=== PATIENT | female | born 1950 | race Two or more races ===

== ENCOUNTER 2024-09-07 12:30 | Outpatient (AMB) | payer MEDICARE, SELFPAY ==
--- NOTE | 2024-09-07 12:41 | MHC.OFFVIS ---
Vital Signs 09/07/24 12:42 Height 4 ft 9 in Weight 123 lb BMI 26.6 BP 126/78 Blood Pressure Location Lt brachial Position Sitting Pulse 67 Pulse Source Pulse Oximeter Pulse Oximetry (%) 97 Oxygen Delivery Method Room Air Intake Visit Reasons: FM/cm Intake Note: Patient presents today as a new patient externally referred by PCP for fibromyalgia. She has had symptoms for 3 or more years, she has GAbapentin for the pain, sometimes it's so bad she cries. She mainly has pain in both arms for months. Water Conservation Specialist Services: Water Conservation Specialist Offered & Declined Water Conservation Specialist Name: Patient's daughter, Toña. Allergies penicillin G Allergy (Mild, Verified 09/07/24 12:47) asthma afia selzer Allergy (Mild, Uncoded 09/07/24 12:47) asthma Medication List - Last Reconciled 09/07/24 by Sultana Lehman MD acetaminophen ER 650 mg PO TID albuterol sulfate 90 mcg/actuation inhalation atorvastatin 10 mg PO DAILY cetirizine 10 mg PO DAILY duloxetine 30 mg PO DAILY famotidine 20 mg PO BID fluticasone propionate 220 mcg/actuation inhalation fluticasone propionate 50 mcg/actuation sprays intranasal gabapentin 300 mg PO TID minoxidil mg PO montelukast 10 mg PO DAILY pantoprazole 40 mg PO BID triamcinolone acetonide 0.025% appl topical DAILY vit C,B-At-dhhni-lutein-zeaxan 250-90-40-1 mg (PreserVision AREDS-2) 1 cap PO BID vitamins A,C,K-ocod-byurlb 4,296 mcg-226 mg-90 mg 1 cap PO BID HPI Comments Details: Patient is a 74-year-old female with hyperlipidemia who presents for evaluation of fibromyalgia Patient comes with her daughter who assists with translation. Patient states that several years ago she presented to a doctor with polyarthralgias and was diagnosed with fibromyalgia. She was subsequently started on gabapentin and duloxetine with minimal effect. She continues to have chronic polyarticular and polymuscular pain. Today specifically her right shoulder extending down her right arm Denies rashes, photosensitivity, alopecia, oral/nasal ulcers, sicca symptoms, lymphadenopathy, chest pain/shortness of breath, inflammatory type joint pain, foamy urine, lower extremity edema, muscle weakness, Raynaud's Also denies history of seizure, CVA, psychosis, history of kidney problems, history of cytopenias, history of VTE including PE or DVTs OB History: No history of recurrent losses [facility] Medical History (Updated 09/06/24 @ 16:30 by Mary Jo Mari [facility]) Hyperlipidemia Osteoporosis Asthma Positive FLO (antinuclear antibody) Gastric reflux Colonic polyp Chronic abdominal pain Chronic shoulder pain Cyst of right kidney Adrenal adenoma Acute anxiety Obstructive sleep apnea Lumbar facet arthropathy Type 2 diabetes mellitus Fibromyalgia Review of Systems Const Details: Review of Systems Constitutional: Denies fever, chills, weight loss ENT: Denies vision changes, eye pain or eye redness, dental caries, dry mouth GI: Denies nausea, vomiting, diarrhea, abdominal pain, change in BM Pulm: Denies SOB, MATHEW, hemoptysis, wheezing Cards: Denies chest pain, palpitations Skin: Denies Raynaud's, rash, nail changes, photosensitivity, PANTS CLOSER: Denies headaches, weakness, paresthesias, recurrent falls MSK: as per HPI All other systems reviewed and are unremarkable except noted above Physical Exam Vital Signs: Last Vital Signs Pulse 67 09/07/24 12:42 BP 126/78 09/07/24 12:42 Pulse Ox 97 09/07/24 12:42 Oxygen Delivery Method Room Air 09/07/24 12:42 BMI result Body Mass Index 26.6 Physical Examination CONSTITUITIONAL Patient alert and cooperative. Well appearing and in no apparent painful distress HEENT Conjunctiva and sclera clear. ?Pupils equal round and reactive to light. ?No lymphadenopathy. ?Normal dentition. No oral or nasal ulcers noted. No evidence of discoid rash to the rogerio of ears CHEST/RESPIRATORY SYSTEM Normal respiratory effort and able to speak in complete sentences. ?Clear to auscultation bilaterally. ?No crackles, rales, rhonchi, wheezes heard. CARDIAC SYSTEM Regular rate and rhythm. ?S1 and S2 heard no murmurs. ?Radial pulses intact bilaterally MSK Hands: ?Good swimming coach strength bilaterally - 5/5. ?Heberden's nodes noted on bilateral hands involving the DIPs. No synovitis noted to the MCPs, PIPs or DIPs. ?No tenderness to palpation of these joints. Wrists: ?Full range of motion at the wrists without pain. ?No tenderness to palpation or synovitis noted to the wrists. Elbows: Full range of motion without pain. No tenderness, weakness, swelling, increased warmth or erythema. Shoulders: Full range of motion without pain. No tenderness, weakness, swelling, increased warmth or erythema. Hips: Full range of motion without pain. Hip bursa: No tenderness to palpation Knees: ?Full range of motion. ?No tenderness, swelling, increased warmth or erythema.?No effusion or crepitations Ankles: Full range of motion. ?No tenderness, swelling, increased warmth or erythema.? Feet: ?Negative squeeze test. ?No tenderness to palpation or swelling of the MTPs. Tender points:??Had some mild tender points involving the trapezius, lower back, bilateral elbow and bilateral knees. SKIN Skin intact without rashes. Results Reviewed Results Reviewed: No results seen in the system Assessment & Plan Assessment & Plan (1) Fibromyalgia: Code(s): M79.7 - Fibromyalgia Plan: #Fibromyalgia Patient carries a diagnosis of fibromyalgia. At this time discussed with patient the nature of the disease. Pain is likely compounded by osteoarthritis involving multiple joints including hands, shoulders and likely lower back. Told her to continue taking gabapentin and duloxetine. We will get CMP today and consider adding Celebrex to her regimen. Plan I spent 30 minutes reviewing the record and labs, seeing the patient, discussing the treatment plan and documenting in the medical record Orders: Orders Comprehensive Met. Panel Today M79.7 - Fibromyalgia Coding Level of Care Code New Pt Level 3 (61500) Diagnoses Fibromyalgia M79.7
[2024-09-07 12:42] VITALS: BP 126/78; PULSE 67; O2SAT 97; BMI 26.6
== END 2024-09-07 13:24 | disposition home or self-care (01) ==
LOC: HO.RHE 12:31
PROVIDERS: PCP Internal Medicine; Visit Provider Student in an Organized Health Care Education/Training Program
DX: M79.7 Fibromyalgia (principal)
CPT/HCPCS: 99203

== ENCOUNTER 2024-09-07 12:30 | Outpatient (REF) | payer MEDICARE, SELFPAY ==
[2024-09-07 14:28] LABS: Alanine Aminotransferase 17 U/L (0-31); Albumin Level 4.3 g/dL (3.5-5.0); Alkaline Phosphatase 110 U/L (39-117); Anion Gap 14 (12-20); Aspartate Amino Transferase 33 U/L (5-31); Bilirubin Total 0.4 mg/dL (0.0-1.0); Blood Urea Nitrogen 9 mg/dL (9-16); Calcium 9.7 mg/dL (8.4-10.2); Carbon Dioxide 25 mmol/L (22-29); Chloride 107 mmol/L (96-108); Estimated Glomerular Filt Rate > 60; Glucose Random 105 mg/dL (60-115); Potassium 4.7 mmol/L (3.3-5.1); Sodium 141 mmol/L (135-145); Total Protein 7.8 g/dL (6.5-8.0)
== END 2024-09-07 12:31 | disposition home or self-care (01) ==
LOC: HO.LAB 12:30
PROVIDERS: PCP Internal Medicine; Visit Provider Student in an Organized Health Care Education/Training Program
DX: M79.7 Fibromyalgia (principal)
CPT/HCPCS: 36415; 80053; 99202

== ENCOUNTER 2025-03-08 10:25 | Outpatient (REF) | payer OTHER, SELFPAY ==
--- OUTSIDE RECORDS SUMMARY | 2025-03-08 11:42 | XMS_ITS | Data Portability ---
Author Organization [employer] Address [address] [place] [id number] Care Team Providers Care Lay Midwife Name Role Phone HIM CCA Referring Provider [phone] Assessment Encounter Date Assessment Date Assessment LastModified by Organization Details LastModified Time 04/07/2022 04/07/2022 72yoF w/ Pmhx of mild asthma and DM2 (non insulin diabetic) who is seen today for five days of a dry cough fever, and three days of b/l lower back pain. Ms. Arango reports that for the past five days she has had a dry cough, fever up to 101 (yesterday), and has had sharp, stabbing pain to her bilateral flanks. She tried to present to the ED yesterday where she received tylenol and had an EKG done, but left without being seen by a provider 2/2 long wait times. Denies n/v or dysuria. VSS on arrival, stock speculator reports patient is well appearing. Lungs clear to ausculatation bilaterally, mild CVA tenderness bilaterally. Abdomen benign. COVID/Flu/Strep testing done and negative. POC urine dipstick performed and notable for 4+ protein, 4+ blood, but negative for leukocyte esterase/nitrites . She denies needing analgesia. Most concerning etiology of her fever would be infected stone, but UA not grossly infected, pain seems to be minimal on exam. Possibly mild nephrolithiasis. Dry cough and fever sound most consistent with a viral etiology, clear lung sounds reassuring against lobar pneumonia. Will send UA for culture. Patient comfortable with plan to manage symptoms conservatively at home with tylenol/ibuprofen PRN. Primary team should see patient in next 2 weeks to f/u hematuria. [email or web address] Not available 04/07/2022 19:53:54 12/24/2023 12/24/2023 I provided real -time medical direction via phone for this encounter, and was available for additional phone based assistance as needed. I have reviewed and agree with the Assessment and Plan as documented by the Swahili Teacher. Patient given the opportunity to ask questions. As per above, patient with a unwitnessed fall but was able to immediately get up. She did develop pain in the left foot and had swelling and bruising. Please see uploaded pictures. She can bear weight and walk on it. She calls to get an assessment of whether not she has a fracture. She is taking some Tylenol for pain. As she can walk on it there is no immediate need for an x-ray or evaluation. Recommended to keep it elevated and get in touch with her PCP office or go to Urgent Care for diagnostic imaging of a plain film in the morning. She is agreement with this plan and wants to avoid the ED at all possible cost. We discussed the diagnostic uncertainty of home visits and the risk associated with this. In this case, the patient and I felt this to be an acceptable and reasonable amount of risk given the benefit of avoiding an ED visit. We discussed the need to seek care urgently/emergent ly in the setting of any new or worsening serious symptoms [email or web address] Not available 12/24/2023 18:47:31 Plan of Treatment Reminders Order Date Submit Date Provider Last Modified By Organization Details Last Modified Time Details Appointments None recorde d. Lab culture , urine 022 04/07/20 22 [facility] (Centralized Electronic Ordering - All Locations), Patient Can Go To The Location Of Their Choice, [address] 09:36:37 Referral None recorde d. Procedures None recorde d. Surgeries None recorde d. Imaging None recorde d. Medication Orders None recorde d. Patient TargetsNo targets recorded. Patient InstructionsNo instructions recorded. Reason for Referral None Reported. Medical Equipment None Reported. Allergies Allergen ID Allergen Name Allergen Category Reaction Reaction Severity Criticality Documentation Date Start Date Code Code System Note Provider Name and Address Organization Details Recorded Time 6991 Product containin g penicilli n (product) medicatio n Not available Not available Not available 08/29/2024 19999 8001 SNOMED Not Available [facility] 03:34:07 6992 aspirin medicatio n Not available Not available Not available 08/29/2024 1191 RxNorm Not Available [facility] - production 4 03:34:07 Medications Name Sig Start Date Stop Date Status Note LastModified by Organization Details LastModified Time albuterol sulfate 2.5 mg/3 mL (0.083 %) solution for nebulization PLEASE SEE ATTACHED FOR DETAILED DIRECTIONS active Not Available Not Available N ot Available cetirizine 10 mg tablet TAKE 1 TABLET BY MOUTH DAILY NEEDED FOR ALLERGIES OR RHINITIS. active Not Available Not Available No t Available sucralfate 1 gram tablet TAKE [address] 6 OZ OF WATER, LET TABLET MELT, STIR, AND TAKE BY MOUTH TWO TIMES A DAY active Not Available Not Available Not Available triamcinolon e acetonide 0.5 % topical ointment APPLY 1 APPLICATION TO AFFECTED AREA EXTERNALLY TWICE A DAY FOR 30 DAYS active Not Available Not Available Not Available baclofen 10 mg tablet TAKE 1 TABLET BY MOUTH 3 TIMES A DAY NEEDED FOR MUSCLE SPASM *MAY CAUSE SEDATION* active Not Available Not Available No t Available pantoprazole 40 mg tablet,delay ed release PLEASE SEE ATTACHED FOR DETAILED DIRECTIONS active Not Available Not Available N ot Available gabapentin 300 mg capsule TAKE 1 CAPSULE BY MOUTH TWICE A DAY active Not Available Not Available No t Available montelukast 10 mg tablet TAKE 1 TABLET BY MOUTH AT BEDTIME FOR 180 DAYS. active Not Available Not Available No t Available hydroxyzine HCl 10 mg tablet TAKE 1 TABLET BY MOUTH BEFORE FLIGHT TAKE OFF, MAY REPEAT ONCE NEEDED IN FLIGHT active Not Available Not Available No t Available betamethason e dipropionate 0.05 % lotion APPLY 5 TO 10 DROPS ONCE OR TWICE DAILY TO SCALP NEEDED active Not Available Not Available No t Available Vitamin D3 25 mcg (1,000 unit) tablet TAKE 1 TABLET BY MOUTH EVERY DAY active Not Available Not Available No t Available rosuvastatin 20 mg tablet TAKE 1 TABLET BY MOUTH EVERY DAY active Not Available Not Available No t Available duloxetine 20 mg capsule,niki yed release TAKE 1 CAPSULE BY MOUTH EVERY DAY active Not Available Not Available No t Available duloxetine 30 mg capsule,niki yed release TAKE 1 CAPSULE BY MOUTH DAILY FOR 360 DAYS. active Not Available Not Available No t Available lactulose 10 gram/15 mL oral solution TAKE 15-30 ML BY MOUTH DAILY (WITH BREAKFAST). active Not Available Not Available Not Available Vitals Date Recorded Respiratory rate Body weight Heart rate Body temperature Oxygen saturation Oxygen saturation in Arterial blood by Pulse oximetry Body height Body weight Body temperature Body height Respiratory rate Heart rate Oxygen saturation Oxygen saturation in Arterial blood by Pulse oximetry Systolic blood pressure Diastolic blood pressure Systolic blood pressure Diastolic blood pressure Provider Name and Address Organization Details Last Updated DateTime 2 20 /min 08340.0 4 g 73 /min 99.1 [degF] 98 % 98 % 154.94 cm 36586.0 4 g 99.1 [degF] 154.94 cm 20 /min 73 /min 98 % 98 % 114 mm[Hg] 68 mm[Hg] 114 mm[Hg] 68 mm[Hg] Not Available [facility] 2 18:43:39 Date Recorded Body temperature Heart rate Body height Body weight Respiratory rate Oxygen saturation Oxygen saturation in Arterial blood by Pulse oximetry Provider Name and Address Organization Details Last Updated DateTime 4 98.4 [degF] 78 /min 152.4 cm 61530 g 14 /min 98 % 98 % Not Available [facility] 4 18:45:12 Social History None recorded. Functional Status None recorded. Mental Status None recorded. Family History Nothing Reported. Medical History No medical history recorded. Gynecological HistoryNo gynecological history recorded. Obstetrics History GPAL:G 0 P 0 0 0 0 Past Encounters Encounter ID Performer Location Encounter Start Date Encounter Closed Date Diagnosis/Indication Diagnosis SNOMED-CT Code Diagnosis ICD10 Code Diagnosis Note 1999 Sandy Cowart MD [facility] [address] [place] [id number] 04/07/2022 18:15:26 06/30/2022 11:42:36 Low back pain 538024876 M54.50 [id number] Myah David MD [facility] [address] [place] [phone] 12/24/2023 18:45:02 03/02/2025 00:25:46 Fall W19.XXXA Pain in left foot 542341 3632 28609 M79.672 Health Concerns Section Related Observation LastModified by Organization Detai ls LastModified Time None Recorded Concern Status LastModified by Organization Details LastModified Time None Recorded Advance Directives Directive None Recorded Payers Insurance Date Sequence Insurance Name Policy Number Policy Mullins Covered Member ID Mullins Member ID Guarantor Name 09/27/2024 1 [facility] - DOS PRIOR TO 2023 - DUAL ELIGIBLE (MEDICARE REPLACEMENT/ADV ANTAGE - HMO) Fartun Davon [id number] Fartun Mays 03/02/2025 1 [facility] - DOS ON OR AFTER 2023 - DUAL ELIGIBLE - [facility] OPTIONS AND ONE CARE (MEDICARE REPLACEMENT/ADV ANTAGE - HMO) Fartun Davon [id number] Fartun Mays Notes Date Note Type Note Provider Name and Address Organization Details Recorded Time 04/07/2022 text/html [facility] Nursing Assessment: Reason For Request: Body ache/fevers/neck /REYES Patient Reports: Cough, fever greater than 2 days ; History of asthma, increased use of inhaler; Cough; Shortness of breath with exertion; Pain with inspiration Denies: Increased work of breathing/labored ? with or without fever Unable to speak in full sentences without distress Discoloration of skin -cyanosis Needs to sleep sitting up, can? t catch breath Shortness of breath in setting of confusion Lower extremity swelling COPD COVID Exposure Sputum increase Chief Complaints: Fever/Chills, Cough PMH: COPD/Asthma, Diabetes, Other Allergies: Penicillin, Aspirin Comments: Member c/o of body aches / Reyes/ Neck / Fever 100.4 yesterday and was given tylenol at the ER , left due to wait. EKG was done with no Cardiac concerns. Denies N/V/D, slight cough . Member c/o slight and sob and decreased appetite . Member was tested for COVID Rapid test negative . Family is aware to call 911 if symptoms become severe .................. .................. .................. .................. .................. .................. .................. ............... Swahili Teacher Note: Pt is a 72 year old female with cough and flank pain. Pt alt, oriented and ambulatory. Pt in no acute distress, airway patent, breathing normally, skin WPD. Pt states on Wednesday, she began to develop a headache. Wednesday she woke up with Body aches. Wednesday she had a temp of 100.4. Yesterday she had a temp of 101.4, went to the ED. In triage she tested negative for covid, had EKG performed, was given Tylenol for fever and left without being fully worked up due to wait times. Today the pt complains of a mild unproductive cough and flank pain. Pt denies contact with any sick people, she is vaccinated and boosted. Rapid covid, strep and flu obtained, all negative results. Pt has been taking Tylenol for symptoms, with mild effect. Pt has had flank pain since Wednesday. Bilateral CVA tenderness noted. Pt has history of kidney stones. Pt complains when urinating she feels pressure in her back paired with pain, malodorous/concent rated urine. Urine sample obtained and dipped, changes in KET, BLO, PRO, SG. Urine brought to [facility] for culture. No further complaints. Vital signs assessed and all within normal limits. Red flags discussed. Consulted with Dr. Cowart. Pt to follow up with PCP/care team regarding her signs, symptoms and todays visit. Pt to wait for Culture results, take Tylenol/ibuprofen for pain/fever. Stay well hydrated. Contact [facility] for re-visit if symptoms persis.t Contact 911 for any discussed red flags or other emergencies. .................. .................. .................. .................. .................. .................. .................. ............... Disposition: Melody Cowart MD [address] [facility],[address], [place], [phone], [employer] 04/07/2022 19:54:21 12/24/2023 text/html [facility] Nurse Triage Notes (Johnny Patricio): Reason For Request: Pt's daughter reporting a fall from slipping in the bathtub>pain in entire left leg primarily bottom and top of left foot Chief Complaints: Falls, Pain PMH: COPD/Asthma, Diabetes Allergies: Penicillin, Aspirin Comments: [employer] Music Therapist verified the member's name//address and phone number - Education provided on the response time and the member was advised to monitor reported s/s and seek emergency treatment if needed CG reports the member had a fall earlier - slipped when getting in the bath tub - Unwitnessed - Pain located in foot/ankle - Swelling - CG is requesting a wellness check Myah David MD [address] [facility],[address], [place], [phone], [employer] 12/24/2023 18:47:40 OBGyn Episode No OBEpisode recorded.
--- OUTSIDE RECORDS SUMMARY | 2025-03-08 11:42 | XMS_ITS | Clinical Summary ---
Author Organization [facility] [address] [place] [address] [place] [phone] Phone Care Team Providers Care Microarray Analyst Name Role Phone Jay Corona MD Primary Care Provider [phone] Allergies Active Allergy Reactions Criticality Noted Date Comments Asa-Calcium Xuxb-Giv-Samnpgqm Wheezing 11/26/2011 Aspirin Shortness of breath High 07/06/2019 Azithromycin Rash 08/26/2016 Nsaids (Non-Steroidal Anti-Inflammatory Drug) Wheezing 01/06/2018 Penicillins Wheezing 11/26/2011 Asthma reaction Medications fluticasone HFA (FLOVENT HFA) 220 mcg/actuation inhaler INHALE 2 PUFFS INTO THE LUNGS 2 TIMES DAILY FOR 30 DAYS. 12 g 5 09/12/20 24 Active minoxidiL (LONITEN) 2.5 mg tablet Take 1 tablet (2.5 mg total) by mouth 1 (one) time each day. 07/22/20 24 Active albuterol HFA (PROAIR HFA ; PROVENTIL HFA ; VENTOLIN HFA) 90 mcg/actuation inhaler Inhale 2 puffs by mouth every 4 (four) hours if needed. 08/28/20 24 Active celecoxib (CeleBREX) 200 mg capsule Take 1 capsule (200 mg total) by mouth 2 (two) times a day. 09/08/20 24 Active clobetasoL (TEMOVATE) 0.05 % cream Apply twice a day to the upper labia for 10 days 08/15/20 24 Active triamcinolone (KENALOG) 0.1 % cream APPLY TO AFFECTED AREA TWICE A DAY NEEDED 09/13/20 24 Active zoledronic acid (RECLAST) 5 mg/100 mL piggyback Infuse 100 mL (5 mg total) into a venous catheter 1 (one) time. 04/14/20 23 Active miscellaneous medical supply misc CPAP Historical Active cyanocobalamin (VIT B-12) 1,000 mcg tablet extended release ER tablet Take 1 tablet (1,000 mcg total) by mouth 1 (one) time each day. Active cholecalcifero l (VITAMIN D-3) 50 mcg (2,000 unit) tablet Take 1 capsule (2,000 Units total) by mouth 1 (one) time each day. Active famotidine (PEPCID) 20 mg tablet TAKE 1 TABLET BY MOUTH 2 TIMES DAILY NEEDED FOR HEARTBURN FOR UP TO 30 DAYS. 180 tablet 3 10/18/20 24 Active acetaminophen (TYLENOL 8 HOUR) 650 mg 8 hr tablet TAKE 1 TABLET BY MOUTH EVERY 8 HOURS NEEDED FOR PAIN 60 tablet 11/06/19 25 Active acetaminophen (TYLENOL 8 HOUR) 650 mg 8 hr tablet Take 1 tablet (650 mg total) by mouth every 8 (eight) hours if needed for mild pain. Do not crush, chew, or split. Active atorvastatin (LIPITOR) 10 mg tablet TAKE 1 TABLET BY MOUTH EVERY DAY 90 tablet 11/16/19 25 Active pantoprazole (PROTONIX) 40 mg EC tablet TAKE 1 TABLET BY MOUTH 2 TIMES DAILY (BEFORE MEALS). TAKE ON EMPTY STOMACH, WAIT 30 MINS AND THEN EAT TO ACTIVATE THE MEDICATION- BEFORE BREAKFAST AND SUPPER. 180 tablet 1 11/30/19 25 Active rosuvastatin (CRESTOR) 5 mg tablet Take 1 tablet (5 mg total) by mouth 1 (one) time each day. 90 each 1 12/04/19 25 025 Active pantoprazole (PROTONIX) 40 mg EC tablet Take 1 tablet (40 mg total) by mouth 2 (two) times a day. Take on empty stomach, wait 30 mins and then eat to activate the medication- before breakfast and dinner 60 each 11 12/05/19 25 Active famotidine (PEPCID) 40 mg tablet Take 1 tablet (40 mg total) by mouth 2 (two) times a day if needed for heartburn. 60 each 11 12/05/19 25 Active ondansetron (ZOFRAN) 4 mg tablet Take 1 tablet (4 mg total) by mouth 3 (three) times a day. 60 tablet 6 12/05/19 25 Active cetirizine (ZyrTEC) 10 mg tablet TAKE 1 TABLET BY MOUTH 1 TIME EACH DAY. 90 tablet 1 12/12/19 25 Active fluticasone propionate (FLONASE) 50 mcg/actuation nasal spray SPRAY 2 SPRAYS INTO EACH NOSTRIL EVERY DAY 48 mL 1 12/21/19 25 Active montelukast (SINGULAIR) 10 mg tablet TAKE 1 TABLET BY MOUTH EVERYDAY AT BEDTIME 90 tablet 1 01/10/20 25 Active DULoxetine (CYMBALTA) [address] capsule TAKE 1 CAPSULE BY MOUTH 1 TIME EACH DAY. 90 capsule 01/27/20 25 Active LORazepam (ATIVAN) 0.5 mg tablet Take one tab one hour prior to takeoff, may repeat x one if needed while in flight 4 tablet 01/30/20 25 Active gabapentin (NEURONTIN) 300 mg capsule TAKE 1 CAPSULE BY MOUTH THREE TIMES A DAY STRENGTH: 300 MG 270 capsule 1 03/05/20 25 Active gabapentin (NEURONTIN) 300 mg capsule Take 1 capsule (300 mg total) by mouth 3 (three) times a day. 08/30/20 24 025 Discontinued Active Problems Problem Noted Date Diagnosed Date Fibromyalgia 05/13/2021 Type II diabetes mellitus wi th ophthalmic manifestations ([facility] V24, [facility] V28) 05/13/2021 Lumbar facet arthropathy 04/26/2020 Obstructive sleep apnea 06/06/2018 Overview (10/02/2024): UNTREATED ( for 5 years as of 10/08/22) [facility] Home Polysomnogram: Date 06/01/2018; AHI 7, Unclassified apneas 0; Obstructive apneas 27; Central apneas 6; Mixed apneas 1; hypopneas 23; average oxygen saturation 96% (lowest 83% without saturations <88% for 5% or more of study) [facility] Polysomnogram treatment study. Date 06/16/2018. SE 40 % SM 71 %; spent 11 % of the study in REM. On CPAP @ 6; RDI 1.4 (AHI 0), Central apneas 0; Obstructive apneas 0; Mixed apneas 0; hypopneas 0; RERAs 4; and, average oxygen saturation was 96%. For the entire study, PLMs ~79. 12/17/2020 to 01/15/2021. CPAP@ 4-8/Average 7.6. 7% compliant with using the machine for >4 hours/day. Average use is 9 hours a night with AHI 1.9. - Obstructive Sleep Apnea - mild; mostly obstructive apneas and hypopneas; without sleep related hypoventilation by 2018 home polysomnogram. Anxiety 05/23/2018 Adrenal adenoma 12/18/2014 Overview (10/02/2024): Incdiental finding on CT 2014 - small left adrenal mass measuring 1.4 x 1.4 cm, not mentioned in CT at [facility] in 2009 Cyst of right kidney 12/18/2014 Overview (10/02/2024): Abd US 2005 [facility] - right kidney cyst 1.[address] 2009 [facility] - right upper kidney cyst 2.1 cm Abd US 2012 - upper pole the right kidney measuring 2.5 x 2.[address] 2014 - upper pole of the right kidney measuring 3.2 x 2.9 x 3.1 cm. Macular degeneration 05/28/2014 Overview (10/02/2024): Dr. Zapata and [facility] Chronic shoulder pain 01/16/2014 Chronic abdominal pain 04/13/2013 Overview (10/02/2024): Mostly epigastric and right upper quadrant. Gallbladder ultrasound 2008, abdominal CT scan 2009, abdominal ultrasound 2005, all at [facility]. Gastric reflux 03/31/2013 Positive FLO (antinuclear antibody) 12/14/2012 Asthma 11/15/2012 Osteoporosis 03/17/2012 Overview (10/02/2024): Last BMD 08/2012 - T -2.5 in lumbar spine B12 deficiency 11/26/2011 Depression 11/26/2011 Hyperlipidemia 11/26/2011 Assessment & Plan (12/04/2024 11:36 AM EST): Orders: Hemoglobin A1c; Future Lipid panel with reflex to direct LDL; Future Comprehensive metabolic panel; Future Microalbumin creatinine urine ratio; Future Insomnia 11/26/2011 Migraine 11/26/2011 Encounters Date Type Department Care Team Description 03/01/2025 12:00 PM EDT Telemedicine [facility] [place] [facility] [place] [address] [place] [address] Violette Bills MD Memory loss 12/29/2024 2:45 PM EST Office Visit Pulmonolgy - [place] [address] [place] [address] Meri Meek MD Mild persistent asthma, unspecified whether complicated (Primary Dx); MAYRA (obstructive sleep apnea) from Last 3 Months Immunizations Name Administration Dates Next Due Influenza Quadravalent, MDCK , 0.5ml, with preservative (Flucelvax) 6mo and older 10/13/2017 Influenza trivalent, 0.5mL ( Fluzone High-dose) 65yo and older 07/14/2024,10/08/2022,12/19/2021,11/15,07/26/2019,07/13/2018 Influenza trivalent, with pr eservative (Fluzone; Afluria) 6mo and older 08/26/2016,08/15/2015,08/28/2014,07/18 Pneumococcal conjugate 13 va lent (Prevnar 13, PCV13) 2mo and older 08/26/2016 Pneumococcal polysaccharide 23 valent (Pneumovax 23) 2yo and older 01/16/2014 Tdap Tetanus diptheria acell ular pertussis (Boostrix; Adacel) 7yo and older 01/16/2013 Zoster Live 01/30/2013 Surgical History Surgery Date Site/Laterality Comments HAND SURGERY 2009 Left PROCEDURE: HISTORICAL HAND SURGERY; COMMENT: tendon repair right hand UPPER GASTROINTESTINAL ENDOSCOPY 2012 PROCEDURE: NM UPPER GI ENDOSCOPY PERFORMED; COMMENT: Visually normal on PPI rx; duodenal bx: normal. COLONOSCOPY 01/10/2010 PROCEDURE: HISTORICAL COLONOSCOPY; COMMENT: [facility]; [facility]; no polyps. COLONOSCOPY 12/28/2008 PROCEDURE: HISTORICAL COLONOSCOPY; COMMENT: [facility]; [facility]; 1.2 cm sessile polyp right colon; snared but lost. COLONOSCOPY 05/09/2015 PROCEDURE: HISTORICAL COLONOSCOPY; COMMENT: [email or web address]; no polyps. SHOULDER SURGERY 2011 PROCEDURE: HISTORICAL SHOULDER SURGERY COLONOSCOPY 07/14/2019 PROCEDURE: HISTORICAL COLONOSCOPY; COMMENT: no polyps. Consider colonoscopy again in 7 years. ESOPHAGOGASTRODUODENOSCOPY 07/14/2021 PROCEDURE: NM EGD TRANSORAL BIOPSY SINGLE/MULTIPLE; COMMENT: bilious fluid in stomach. NOS. biopsy pending HYSTERECTOMY 1996 PROCEDURE: HISTORICAL HYSTERECTOMY; COMMENT: due to fibroids Medical History Medical History Date Comments Positive FLO (antinuclear antibody) 12/14/2012 DX:Positive FLO (antinuclear antibody) Personal history of colonic polyps 04/04/2013 DX:Personal history of colonic polyps Chronic abdominal pain 04/13/2013 DX:Chroni c abdominal pain; COMMENT: Mostly epigastric and right upper quadrant. Gallbladder ultrasound 2008, abdominal CT scan 2009, abdominal ultrasound 2005, all at [facility]. Prediabetes DX:Prediabetes Osteopenia DX:Osteopenia Hyperlipidemia DX:Hyperlipidemi a MAYRA (obstructive sleep apnea) DX :AMYRA (obstructive sleep apnea) Renal cyst DX:Renal cyst Pulmonary nodule DX:Pulmonary no dule Epigastric pain DX:Epigastric pa in Postprandial epigastric pain DX: Postprandial epigastric pain Esophageal reflux DX:Esophageal reflux Anxiety state DX:Anxiety state Asthma DX:Asthma Depressive disorder DX:Depressiv e disorder Diabetes mellitus type 2, co ntrolled, with complications (CMS/HCC V24, CMS/HCC V28) DX:Diabetes mellitus type 2, controlled, with complications (HCC) Chronic gastritis DX:Chronic gas tritis History of COVID-19 12/19/2021 DX:History o f COVID-19; COMMENT: DX: 11/2021 Epigastric pain DX:Epigastric pa in Epigastric pain DX:Epigastric pa in Nausea DX:Nausea Rectal bleeding DX:Rectal bleedi ng Family History Medical History Relation Name Comments Other: sudden Brother 1 ?[place] No Known Problems Brother 2 No Known Problems Brother 3 Other: cancer ?type Father ?liver Asthma Mother No Known Problems Sister 1 Alcohol/Drug Sister 2 lives in [place] Breast cancer Neg Hx Colon cancer Neg Hx Prostate cancer Neg Hx Relation Name Status Comments Brother 1 Brother 2 Alive Brother 3 Alive Father Mother Sister 1 Alive Sister 2 Alive Social History Tobacco Use Types Packs/Day Years Used Date Smoking Tobacco: Never Smokeless Tobacco: Never Tobacco Cessation:Counseling Given: Not Answered Alcohol Use Standard Drinks/Week Comments No 0 (1 standard drink = 0.6 oz pur e alcohol) Comments Unknown Sex and Gender Information Value Date Recorded Sex Assigned at Female 09/18/2024 2:23 PM EST Legal Sex Female 6:18 PM EST Gender Identity Female 09/18/2024 2:23 PM EST Sexual Orientation Straight 09/18/2024 2: 23 PM EST Obstetrics History Last Filed Vital Signs Vital Sign Reading Time Taken Comments Blood Pressure 124/70 12/29/2024 3:02 PM EST Pulse 68 12/29/2024 3:02 PM EST Temperature 35.8 ??C (96.4 ??F) 12/29/2024 3:02 PM ES T Respiratory Rate 16 12/29/2024 3:02 PM EST Oxygen Saturation 97% 12/29/2024 3:02 PM EST Inhaled Oxygen Concentration - - Weight 54.8 kg (120 lb 12.8 oz) 12/29/2024 3:02 PM EST Height 149.9 cm (4' 11 ) 12/29/2024 3:02 PM EST Body Mass Index 24.4 12/29/2024 3:02 PM EST Plan of Treatment Upcoming Encounters Date Type Department Care Team (Late st Contact Info) Description 03/20/2025 2:00 PM EDT Evaluation [facility] Speech Therapy [address] [phone] Gracie Betancourt, TRUCK RENTAL CLERK 06/15/2025 11:30 AM EDT Office Visit Adult Medicine [address] [phone] Jay Corona MD [address] [place] [phone] 06/21/2025 1:40 PM EDT Appointment Radiology Department - [address] [phone] 07/17/2025 10:45 AM EDT Office Visit Pulmonolgy [facility] [address] [facility] [address] [place] [phone] Meri Meek MD [address] [phone] Health Maintenance Due Date Last Done Comments Diabetes: Annual Foot Exam 1961 Diabetes: Annual Retina Eye Exam 1961 Hepatitis A Vaccines (1 of 2 - Risk 2-dose series) 1970 Hepatitis B Vaccines (1 of 3 - Risk 3-dose series) 2011 RSV Immunization Adult Patients (1 - Risk 60-74 years 1-dose series) 2011 Zoster Vaccines (2 of 3) 03/27/2013 01/30/2013 Pneumococcal Vaccine: 50+ Years (3 of 3 - PCV20 or PCV21) 08/26/2021 08/26/2016, 01/16/2014 Depression Screening 10/10/2022 Falls Risk Assessment 10/10/2022 Social Influencers of Health Screening 10/10/2022 DTaP,Tdap,and Td Vaccines (2 - Td or Tdap) 01/16/2023 01/16/2013 COVID-19 Vaccine ( season) 2024 10/02/2021, 03/05/2021, 02/05/2021 Colorectal Cancer Screening: Stool Based Tests (FOBT/FIT) 05/12/2025 05/12/2024 Diabetes: Blood Sugar Control Test (HGBA1C) 06/03/2025 12/04/2024, 05/16/2024, 05/16/2024 Diabetes: Annual Urine Albumin-Creatinine Ratio (uACR) 12/04/2025 12/04/2024, 05/16/2024 Diabetes: Annual GFR (Glomerular Filtration Rate) 12/04/2025 12/04/2024, 05/16/2024, 05/12/2024, Additional history exists Medicare Annual Wellness Visit 12/04/2025 12/04/2024 Breast Cancer Screening 06/15/2026 06/15/20 24, 06/15/2024, 06/14/2023, Additional history exists Cholesterol Screening (Lipid Panel) 12/04/2029 12/04/2024, 05/16/2024, 05/16/2024 Osteoporosis Screening (Bone Density Screening) 09/19/2034 09/19/2024, 01/19/2022, 12/04/2019, Additional history exists Hepatitis C Screening Completed 11/23/2023 Influenza Vaccine Completed 07/14/2024, , 12/19/2021, Additional history exists HIB Vaccines Aged Out No longer eligi ble based on patient's age to complete this topic HPV Vaccines Aged Out No longer eligi ble based on patient's age to complete this topic IPV Vaccines Aged Out No longer eligi ble based on patient's age to complete this topic MMR Vaccines Aged Out No longer eligi ble based on patient's age to complete this topic Meningococcal ACWY Vaccine Aged Out N o longer eligible based on patient's age to complete this topic Meningococcal B Vaccine Aged Out No l onger eligible based on patient's age to complete this topic RSV Immunization Patients Under 20 months Aged Out No longer eligible based on patient's age to complete this topic Varicella Vaccines Aged Out No longer eligible based on patient's age to complete this topic Procedures Procedure Name Priority Date/Time Associated Diagnosis Comments MICROALBUMIN CREATININE URINE RATIO Routine 12/04/2024 12:08 PM EST Pure hypercholesterolemia COMPREHENSIVE METABOLIC PANEL Routine 12/04/2024 12:08 PM EST Pure hypercholesterolemia HEMOGLOBIN A1C Routine 12/04/2024 12:08 PM EST Pure hypercholesterolemia LIPID PANEL WITH REFLEX TO DIRECT LDL Routine 12/04/2024 12:08 PM EST Diet-controlled diabetes mellitus (CMS/HCC V24, CMS/HCC V28) Pure hypercholesterolemia BD BONE DENSITY DXA AXIAL SKELETON Routine 09/19/2024 10:37 AM EST Age-related osteoporosis without current pathological fracture SCREENING MAMMOGRAPHY BI 2-VIEW BREAST INC CAD Routine 06/15/2024 1:40 PM EDT Encounter for screening mammogram for malignant neoplasm of breast HM STOOL BASED TEST Routine 05/12/2024 HEPATITIS C SCREENING Routine 11/23/2023 from Last 3 Months or Most Recently Relevant to Health Maintenance Results * Lipid panel with reflex to direct LDL (12/04/2024 12:08 PM EST) Cholesterol 146 0 - 200 mg/dL LAB CHEMISTRY METHOD 12/04/2024 5:[address] [facility] Triglycerides 108 0 - 150 mg/dL LAB CHEMISTRY METHOD 12/04/2024 5:19 PM [facility] HDL 41 >=40 mg/dL LAB CHEMISTRY METHOD 12/04/2024 5:19 PM [facility] LDL Calculated 83 0 - 100 mg/dL LAB CHEMISTRY METHOD 12/04/2024 5:19 PM [facility] VLDL Cholesterol Cabrera 21.6 mg/dL LAB CHEMISTRY METHOD 12/04/2024 5:19 PM [facility] Non HDL Chol. (LDL+VLDL) 105 <145 mg/dL LAB CHEMISTRY METHOD 12/04/2024 5:19 PM [facility] Chol/HDL Ratio 3.6 0.0 - 4.4 LAB CHEMISTRY METHOD 12/04/2024 5:19 PM [facility] Blood Venous blood specimen / Unknown Venipuncture / Unknown 12/04/2024 12:08 PM EST 12/04/2024 12:08 PM EST us Jay Corona MD LAB BLOOD ORDERABLES Final Resu lt [facility] [address] [place] [address], * Microalbumin creatinine urine ratio (12/04/2024 12:08 PM EST) Creatinine, Urine 292.0 mg/dL LAB CHEMISTRY METHOD 12/04/2024 6:12 PM [facility] Comment:Results verified by repeat testing Microalb, Ur 19.7 0.0 - 29.0 mg/L LAB CHEMISTRY METHOD 12/04/2024 6:12 PM [facility] Microalb/Creat Ratio 7 <30 mg/g creat LAB CHEMISTRY METHOD 12/04/2024 6:[address] [facility] Urine Urine specimen obtained by clean catch procedure / Unknown Non-blood Collection / Unknown 12/04/2024 12:08 PM EST 12/04/2024 12:08 PM EST us Jay Corona MD LAB URINE ORDERABLES Final Resu lt Performing Organization Address [facility]/ZIP Co de Phone Number [facility] [address] [place] [address], [place] [phone] * Hemoglobin A1c (12/04/2024 12:08 PM EST) Hemoglobin A1C 6.2 <6.5 % LAB CHEMISTRY METHOD 12/04/2024 9:[address] [facility] Mean Bld Glu Estim. 131 mg/dL LAB CHEMISTRY METHOD 12/04/2024 9:[address] [facility] Blood Venous blood specimen / Unknown Venipuncture / Unknown 12/04/2024 12:08 PM EST 12/04/2024 12:08 PM EST us Jay Corona MD LAB BLOOD ORDERABLES Final Resu lt Performing Organization Address City/[facility]/ZIP Co de Phone Number [facility] [address] [place] [address], [place] [phone] * (ABNORMAL) Comprehensive metabolic panel (12/04/2024 12:08 PM EST) Sodium 139 133 - 145 mmol/L LAB CHEMISTRY METHOD 12/04/2024 5:[address] [facility] Potassium 4.3 3.5 - 5.5 mmol/L LAB CHEMISTRY METHOD 12/04/2024 5:[address] [facility] Chloride 105 96 - 110 mmol/L LAB CHEMISTRY METHOD 12/04/2024 5:19 PM [facility] CO2 28 21 - 32 mmol/L LAB CHEMISTRY METHOD 12/04/2024 5:19 PM [facility] Anion Gap 6 3 - 11 LAB CHEMISTRY METHOD 12/04/2024 5:19 PM [facility] Glucose 102(H) 70 - 100 mg/dL LAB CHEMISTRY METHOD 12/04/2024 5:19 PM [facility] BUN 12 5 - 25 mg/dL LAB CHEMISTRY METHOD 12/04/2024 5:19 PM [facility] Creatinine 0.81 0.50 - 1.10 mg/dL LAB CHEMISTRY METHOD 12/04/2024 5:19 PM [facility] eGFR 77 >=60 mL/min/1. 73m2 LAB CHEMISTRY METHOD 12/04/2024 5:19 PM [facility] Comment:Calculation based on the??Chronic Kidney Disease Epidemiology Collaboration (CKD-EPI) equation refit??without adjustment for race. BUN/Creatinine Ratio 14.8 LAB CHEMISTRY METHOD 12/04/2024 5:19 PM [facility] Calcium 9.4 8.5 - 10.5 mg/dL LAB CHEMISTRY METHOD 12/04/2024 5:19 PM [facility] AST (SGOT) 24 10 - 42 unit/L LAB CHEMISTRY METHOD 12/04/2024 5:19 PM [facility] ALT (SGPT) 26 10 - 60 unit/L LAB CHEMISTRY METHOD 12/04/2024 5:19 PM [facility] Alkaline Phosphatase 121 42 - 121 unit/L LAB CHEMISTRY METHOD 12/04/2024 5:19 PM [facility] Total Protein 7.7 6.0 - 8.0 g/dL LAB CHEMISTRY METHOD 12/04/2024 5:19 PM [facility] Albumin 3.8 3.2 - 5.0 g/dL LAB CHEMISTRY METHOD 12/04/2024 5:[address] [facility] Total Bilirubin 0.4 0.0 - 1.4 mg/dL LAB CHEMISTRY METHOD 12/04/2024 5:[address] [facility] Blood Venous blood specimen / Unknown Venipuncture / Unknown 12/04/2024 12:08 PM EST 12/04/2024 12:08 PM EST us Jay Corona MD LAB BLOOD ORDERABLES Final Resu lt [facility] [address] [place] [address], * BD Bone Density DXA Axial Skeleton (09/19/2024 10:37 AM EST) Anatomical Region Laterality Modality Wrist, Hip, L-spine Bone Densito metry 09/19/2024 3:06 PM EST Impressions 09/19/2024 3:08 PM EST Osteopenia by WHO criteria. This patient has a 6.3% risk of major osteoporotic fracture and a 1.1% risk of hip fracture over the next 10 years. (World Health Organization Fracture Risk Assessment) The [facility] Department of Internal Medicine recommends using National Osteoporosis Foundation (NOF) guidelines in treatment decisions related to osteoporosis. NOF guidelines suggest considering treatment for postmenopausal women and men aged 50 or older presenting with the following: History of hip or vertebral fracture. T-score = -2.5 (DXA) at the femoral neck, total hip, or spine, after appropriate evaluation to exclude secondary causes. Low bone mass (T-score between -1.0 and -2.5 at the femoral neck or spine) AND a 10-year probability of a hip fracture = 3% OR a 10-year probability of a major osteoporosis-related fracture = 20% based on the [place]-adapted WHO algorithm Please note that all treatment decisions require clinical judgment and consideration of individual patient factors, including patient preferences, co-morbidities, previous drug use, risk factors not captured in the FRAX model (e.g., frailty, falls, vitamin D deficiency, increased bone turnover, interval significant decline in bone density) and possible under- or over-estimation of fracture risk by FRAX. Optional alternative screening schedule based on silverio Parikh., [facility] November 19, 2011 for patients with osteopenia (based on hip BMD T-score) is as follows: * ??advanced osteopenia (T scores -2.00 to -2.49), BMD testing every year * ??moderate osteopenia (T scores -1.50 to -1.99), BMD testing every 5 years mild osteopenia or normal BMD (T scores -1.50 and higher), BMD testing every 15 years -------- FINAL REPORT -------- Dictated By: Maria Esther Solis Dictated Date: 09/19/2024 15:06 ET Assigned Physician: Maria Esther Solis Reviewed and Electronically Signed By: Maria Esther Solis Signed Date: 09/19/2024 15:08 ET Workstation ID: [id number] Transcribed By: Self Edit Transcribed Date: 09/19/2024 15:06 ET Narrative 09/19/2024 3:08 PM EST BONE DENSITY SCAN (DEXA): FINDINGS: Lumbar Spine T-score is -2.3. ?? (SD relative to 20-29 y/o adult) Z-score is 0.0. ??(SD relative to age matched peers) This is considered osteopenia by WHO criteria. Left Hip T-score is -1.5. Z-score is 0.4. This is considered osteopenia by WHO criteria. Comparison exam(s): 01/19/2022. ??No statistically significant change in bone mineral density. Procedure Note Maria Esther Solis MD - 09/19/2024 BONE DENSITY SCAN (DEXA): FINDINGS: Lumbar Spine T-score is -2.3. (SD relative to 20-29 y/o adult) Z-score is 0.0. (SD relative to age matched peers) This is considered osteopenia by WHO criteria. Left Hip T-score is -1.5. Z-score is 0.4. This is considered osteopenia by WHO criteria. Comparison exam(s): 01/19/2022. No statistically significant change inbone mineral density. IMPRESSION: Osteopenia by WHO criteria. This patient has a 6.3% risk of majorosteoporotic fracture and a 1.1% risk of hip fracture over the next 10years. (World Health Organization Fracture Risk Assessment) The [facility] Department of Internal Medicine recommendsusing National Osteoporosis Foundation (NOF) guidelines in treatmentdecisions related to osteoporosis. NOF guidelines suggest consideringtreatment for postmenopausal women and men aged 50 or older presentingwith the following: History of hip or vertebral fracture. T-score = -2.5 (DXA) at the femoral neck, total hip, or spine, afterappropriate evaluation to exclude secondary causes. Low bone mass (T-score between -1.0 and -2.5 at the femoral neck or spine)AND a 10-year probability of a hip fracture = 3% OR a 10-year probabilityof a major osteoporosis-related fracture = 20% based on the [place]-adapted WHOalgorithm Please note that all treatment decisions require clinical judgment andconsideration of individual patient factors, including patientpreferences, co-morbidities, previous drug use, risk factors not capturedin the FRAX model (e.g., frailty, falls, vitamin D deficiency, increasedbone turnover, interval significant decline in bone density) and possibleunder- or over-estimation of fracture risk by FRAX. Optional alternative screening schedule based on silverio Parikh., NEJJanuary 2011 for patients with osteopenia (based on hip BMD T-score)is as follows: * advanced osteopenia (T scores -2.00 to -2.49), BMD testing every year * moderate osteopenia (T scores -1.50 to -1.99), BMD testing every 5years mild osteopenia or normal BMD (T scores -1.50 and higher), BMD testingevery 15 years -------- FINAL REPORT -------- Dictated By: Maria Esther Solis Dictated Date: 09/19/2024 15:06 ET Assigned Physician: Maria Esther Solis Reviewed and Electronically Signed By: Maria Esther Solis Signed Date: 09/19/2024 15:08 ET Workstation ID: [id number] Transcribed By: Self Edit Transcribed Date: 09/19/2024 15:06 ET us Lorna SCOTT IMG DXA PROCEDURES Final Result * SCREENING MAMMOGRAPHY BI 2-VIEW BREAST INC CAD (06/15/2024 1:40 PM EDT) Anatomical Region Laterality Modality Radiographic Jeanie ging 06/14/2023 1:03 PM EDT Narrative 06/16/2024 4:22 PM EDT This is a summary report. The complete report is available in the patient's medical record. If you cannot access the medical record, please contact the sending organization for a detailed fax or copy. Exam: Screening mammogram Findings: Digital bilateral full-field screening mammography is performed with tomosynthesis and interpreted with the aid of computer-aided detection. ??Comparison is made with 06/14/2023 and as far back as 05/30/2020. Breast parenchyma is composed of scattered fibroglandular densities. ??No new suspicious mass, architectural distortion, or suspicious calcifications. Impression: No mammographic evidence of malignancy. BI-RADS 1 - negative Procedure Note Maria Esther Solis MD - 08/16/2024 This is a summary report. The complete report is available in thepatient's medical record. If you cannot access the medical record, pleasecontact the sending organization for a detailed fax or copy. Exam: Screening mammogram Findings: Digital bilateral full-field screening mammography is performedwith tomosynthesis and interpreted with the aid of computer-aideddetection. Comparison is made with 06/14/2023 and as far back as05/30/2020. Breast parenchyma is composed of scattered fibroglandular densities. Nonew suspicious mass, architectural distortion, or suspiciouscalcifications. Impression: No mammographic evidence of malignancy. BI-RADS 1 - negative Jay Corona MD IMG XR PROCEDURES Final Result * Stool Based Tests (FOBT/FIT) (05/12/2024) Pathologist [facility] Colorectal Cancer Screening: Stool Based Tests Abstracted, Negative Historical Provider HEALTH MAINTENANCE Final Result * Hepatitis C Screening (11/23/2023) Pathologist [facility] Hepatitis C Screening Abstracted [facility] Provider HEALTH MAINTENANCE Final Result from Last 3 Months or Most Recently Relevant to Health Maintenance Insurance [employer] MEDICARE Member Subscriber Plan / Payer (Ef fective 2016-Present) Name:Fartun Mays Relation to Subscriber:Self Name:Fartun Mays Payer ID:[id number] Group ID:[id number] Type:Not on file Address: [place] [address] [address] [place] [id number] Advance Directives * Full Code - Confirmed (Latest Code Status on File) Date Activated Date Inactivated Comments 12/04/2024 11:35 AM This code stat us was ascertained in the following way: Code status discussion: discussion with patient To update the patient's code status, place a code status order. Do not modify or discontinue any currently active code status orders. Care Teams Microarray Analyst Relationship Specialty Start Date End Date Jay Corona MD [address] [place] [id number] PCP - General Internal Medicine 09/19/24
--- OUTSIDE RECORDS SUMMARY | 2025-03-08 11:42 | XMS_ITS | Clinical Summary ---
Author Organization [facility] Address [address] [place] [address] Care Team Providers Care Gas Check Pad Maker Name Role Phone Sapna Svitlana Rodriguez DO Primary Care P rovider Allergies Active Allergy Reactions Criticality Noted Date Comments Aspirin 07/06/2019 Penicillins 07/06/2019 Medications Medication Sig Dispensed Refills Start Date End Date Status albuterol (PROVENTIL HFA;VENTOLIN HFA) 108 (90 Base) MCG/ACT inhaler 0 06/14/2019 Active cetirizine (ZyrTEC) 10 MG tablet 0 07/05/2019 Active D3-1000 1000 units capsule 0 06/14/2019 Active VITAMIN B12 TR 1000 MCG TBCR 0 06/14/2019 Active fluticasone (FLONASE) 50 MCG/ACT nasal spray 0 06/14/2019 Ac tive FLOVENT HFA 220 MCG/ACT inhaler 0 07/02/2019 Active montelukast (SINGULAIR) 10 MG tablet 0 06/15/2019 Active omeprazole (PriLOSEC) 20 MG capsule 0 06/14/2019 Active oxyCODONE-acetaminophe n (PERCOCET) 10-325 MG per tablet Take 1 tablet by mouth 2 (two) times a day. 0 05/22/2019 Active rosuvastatin (CRESTOR) tablet 20 mg 0 07/05/2019 Active Active Problems Problem Noted Date Diagnosed Date Osteoarthritis 04/10/2022 Osteoporosis 04/10/2022 Neck pain on left side 07/06/2019 Family History Medical History Relation Name Comments Cancer Father Relation Name Status Comments Father Social History Tobacco Use Types Packs/Day Years Used Date Smoking Tobacco: Never Assessed Sex and Gender Information Value Date Recorded Sex Assigned at Female 03/26/2022 4:28 PM EDT Gender Identity Not on file Sexual Orientation Not on file Job Start Date Occupation Industry Not on file Not on file Not on file Last Filed Vital Signs Vital Sign Reading Time Taken Comments Blood Pressure 124/60 04/27/2023 10:39 AM EDT Pulse 65 04/27/2023 10:39 AM EDT Temperature 36.4 ??C (97.6 ??F) 04/27/2023 10:39 AM E DT Respiratory Rate 18 04/27/2023 10:39 AM EDT Oxygen Saturation 100% 04/27/2023 10:39 AM EDT Inhaled Oxygen Concentration - - Weight 54.9 kg (121 lb 0.5 oz) 04/27/2023 10:39 AM EDT Height 144.8 cm (4' 9 ) 07/06/2019 12:57 PM EDT Body Mass Index 26.19 07/06/2019 12:57 PM EDT Plan of Treatment Health Maintenance Due Date Last Done Comments Hepatitis C Screening 1950 COVID-19 Vaccine (#1) 1950 Depression Screening 1963 Preventative Health Evaluation 1969 Colon Cancer Screening (Colonoscopy) 01/27/1996 Breast Cancer Screening (Mammogram) 2001 Shingrix-Zoster Vaccine (1 of 2) 2001 Fall Risk Assessment 01/27/2016 Osteoporosis Screening (DEXA Scan) 01/27/2016 Pneumococcal Vaccine (3 of 3 - PPSV23 or PCV20) 08/26/2021 08/26/2016, 01/16/2014 DTap / Tdap / Td (2 - Td or Tdap) 01/16/2023 01/16/2013 Influenza Vaccine (#1) 2024 2, 12/19/2021, 11/15/2020, Additional history exists RSV Adult > 60+ Yrs or (1 - 1-dose 75+ series) 2026 Hepatitis B Vaccines Aged Out No long er eligible based on patient's age to complete this topic RSV Ped < 20 months Aged Out No longe r eligible based on patient's age to complete this topic Care Teams Gas Check Pad Maker Relationship Specialty Start Date End Date Svitlana Garcia DO PCP - General Payroll Services Analyst 06/21/19
[2025-03-08 17:59] LABS: Alanine Aminotransferase 13 U/L (0-31); Alkaline Phosphatase 85 U/L (39-117); Anion Gap 12 (12-20); Aspartate Amino Transferase 28 U/L (5-31); Bilirubin Total 0.2 mg/dL (0.0-1.0); Blood Urea Nitrogen 12 mg/dL (9-16); Calcium 9.3 mg/dL (8.4-10.2); Carbon Dioxide 26 mmol/L (22-29); Chloride 108 mmol/L (96-108); Estimated Glomerular Filt Rate > 60; Glucose Random 96 mg/dL (60-115); Potassium 4.5 mmol/L (3.3-5.1); Sodium 141 mmol/L (135-145)
== END 2025-03-08 10:26 | disposition home or self-care (01) ==
LOC: HO.HKASLDS 10:25
PROVIDERS: Visit Provider Student in an Organized Health Care Education/Training Program
DX: M47.816 Spondylosis without myelopathy or radiculopathy, lumbar region (principal)
CPT/HCPCS: 36415; 80053

== ENCOUNTER 2025-07-04 12:56 | Outpatient (AMB) | payer OTHER, SELFPAY ==
[2025-07-04 12:59] VITALS: BP 122/62; PULSE 58; O2SAT 98; BMI 25.8
--- NOTE | 2025-07-04 12:59 | A.OFFVIS_ITS ---
Vital Signs 07/04/25 12:59 Height 4 ft 9 in Weight 119 lb 0.794 oz BMI 25.8 BP 122/62 Blood Pressure Location Lt brachial Position Sitting Pulse 58 Pulse Source Pulse Oximeter Pulse Oximetry (%) 98 Oxygen Delivery Method Room Air Intake Visit Reasons: follow up Intake Note: Patient last seen by Doctor Sultana Lehman on 09/27/24. Presents today for FM follow up. Patient complains of pain in arm and hands for months, unable to grab things. Operations Planner Services: Operations Planner Offered & Declined Accompanied by: Daughter Allergies aspirin Allergy (Mild, Verified 07/04/25 13:03) asthma attacks penicillin G Allergy (Mild, Verified 09/07/24 12:47) asthma afia selzer Allergy (Mild, Uncoded 09/07/24 12:47) asthma Medication List - Last Reconciled 07/04/25 by Sultana Lehman MD acetaminophen ER 650 mg PO TID albuterol sulfate 90 mcg/actuation inhalation atorvastatin 10 mg PO DAILY celecoxib 200 mg PO BID cetirizine 10 mg PO DAILY famotidine 20 mg PO BID fluticasone propionate 220 mcg/actuation inhalation fluticasone propionate 50 mcg/actuation sprays intranasal gabapentin 300 mg PO TID montelukast 10 mg PO DAILY pantoprazole 40 mg PO BID triamcinolone acetonide 0.025% appl topical DAILY vit C,D-Wo-oatve-lutein-zeaxan 250-90-40-1 mg (PreserVision AREDS-2) 1 cap PO BID vitamins A,C,E-lejc-yvponn 4,296 mcg-226 mg-90 mg 1 cap PO BID HPI Comments Details: Patient is a 75-year-old female with hyperlipidemia, polyarticular OA and fibromyalgia here today for follow up Interval History: Patient last seen 09/07/24 with me - New patient visit - Started on celebrex Today - On celebrex - No improvement - Still complaining of whole body pain Rheumatologic History: Fibromyalgia Gabapentin - not effective Duloxetine - not effective Celebrex - not effective Initial history: Patient comes with her daughter who assists with translation. Patient states that several years ago she presented to a doctor with polyarthralgias and was diagnosed with fibromyalgia. She was subsequently started on gabapentin and duloxetine with minimal effect. She continues to have chronic polyarticular and polymuscular pain. Today specifically her right shoulder extending down her right arm Denies rashes, photosensitivity, alopecia, oral/nasal ulcers, sicca symptoms, lymphadenopathy, chest pain/shortness of breath, inflammatory type joint pain, foamy urine, lower extremity edema, muscle weakness, Raynaud's Also denies history of seizure, CVA, psychosis, history of kidney problems, history of cytopenias, history of VTE including PE or DVTs OB History: No history of recurrent losses Current Rheumatology Medication(s): Celebrex 200mg bid [facility] Medical History (Updated 03/06/25 @ 09:55 by Sultana Lehman MD) Hyperlipidemia Osteoporosis Asthma Positive FLO (antinuclear antibody) Gastric reflux Colonic polyp Chronic abdominal pain Chronic shoulder pain Cyst of right kidney Adrenal adenoma Acute anxiety Obstructive sleep apnea Lumbar facet arthropathy Type 2 diabetes mellitus Fibromyalgia Review of Systems Const Details: Review of Systems Constitutional: Denies fever, chills, weight loss ENT: Denies vision changes, eye pain or eye redness, dental caries, dry mouth GI: Denies nausea, vomiting, diarrhea, abdominal pain, change in BM Pulm: Denies SOB, MATHEW, hemoptysis, wheezing Cards: Denies chest pain, palpitations Skin: Denies Raynaud's, rash, nail changes, photosensitivity, RESIDENTIAL WORKER: Denies headaches, weakness, paresthesias, recurrent falls MSK: as per HPI All other systems reviewed and are unremarkable except noted above Physical Exam Exam Exam: Vital signs reviewed Physical Examination CONSTITUITIONAL Patient alert and cooperative. Well appearing and in no apparent painful distress MSK Hands * Right Hand: Able to make a fist. No swelling or tenderness to palpation of the MCPs, PIPs or DIPs. * Left Hand: Able to make a fist. No swelling or tenderness to palpation of the MCPs, PIPs or DIPs. * Herbedens nodes noted bilaterally Wrists * Right Wrist: Full ROM to flexion and extension. No swelling or TTP * Left Wrist: Full ROM to flexion and extension. No swelling or TTP Elbows * Right Elbow: Full ROM. No swelling or TTP. No TTP of the medial epicondyle. No TTP of the lateral epicondyle * Left Elbow: Full ROM. No swelling or TTP. No TTP of the medial epicondyle. No TTP of the lateral epicondyle Shoulders * Right shoulder: Decreased ROM. No swelling noted. No TTP of the AC joint. No TTP of the subacromial bursa. No TTP of the posterior shoulder * Left shoulder: Decreased ROM. No swelling noted. No TTP of the AC joint. No TTP of the subacromial bursa. No TTP of the posterior shoulder Hip bursa:Tenderness to palpation bilaterally Knees * Right knee: Full ROM. No swelling noted. No TTP of the knee joint line. TTP of pes anserine bursa * Left knee: Full ROM. No swelling noted. No TTP of the knee joint line. TTP of pes anserine bursa. * Crepitations felt bilaterally Ankles * Right ankle: Good ankle dorsiflexion and plantar flexion. No swelling. No TTP of the ankle joint * Left ankle: Good ankle dorsiflexion and plantar flexion. No swelling. No TTP of the ankle joint Feet * Right foot: Negative squeeze test * Left foot: Negative squeeze test Tender points? * Tenderness to palpation of the bilateral trapezius, supraspinatus, anterior costochondral junctions, bilateral suboccipital muscle insertions SKIN No rashes Vital Signs: Last Vital Signs Pulse 58 07/04/25 12:59 BP 122/62 07/04/25 12:59 Pulse Ox 98 07/04/25 12:59 Oxygen Delivery Method Room Air 07/04/25 12:59 BMI result Body Mass Index 25.8 Results Reviewed Results Reviewed: Laboratory Tests 03/08/25 10:29 Sodium 141 Potassium 4.5 Chloride 108 Carbon Dioxide 26 BUN 12 Creatinine 0.72 AST 28 ALT 13 Assessment & Plan Assessment & Plan (1) Fibromyalgia: Code(s): M79.7 - Fibromyalgia Plan: #Fibromyalgia Patient is a 75-year-old female with fibromyalgia and polyarticular osteoarthritis here today for follow up. Did not have any improvement on Celebrex and self-discontinued same. We will try low-dose naltrexone. Recommended that she continue taking her gabapentin and duloxetine given by other providers Plan - Naltrexone 4.5mg daily - RTC 6 months Plan I spent 20 minutes reviewing the record and labs, seeing the patient, discussing the treatment plan and documenting in the medical record Medications: New naltrexone 4.5 mg PO .nightly 90 caps 1RF M79.7 - Fibromyalgia Discontinued celecoxib Discontinued Reason: Patient no longer taking 200 mg PO BID 180 caps 1RF M19.90 - Unspecified osteoarthritis, unspecified site Coding Level of Care Code Est Pt Level 3 (81804) Diagnoses Fibromyalgia M79.7
--- OUTSIDE RECORDS SUMMARY | 2025-07-04 15:19 | XMS_ITS | Clinical Summary ---
Author Organization [facility] [address] [place] [address] [place] [phone] Phone Care Team Providers Care Bulb Grader Name Role Phone Jay Corona MD Primary Care Provider [phone] Allergies Active Allergy Reactions Criticality Noted Date Comments Asa-Calcium Utal-Uht-Hsxltusy Wheezing 11/26/2011 Aspirin Shortness of breath High 07/06/2019 Azithromycin Rash 08/26/2016 Nsaids (Non-Steroidal Anti-Inflammatory Drug) Wheezing 01/06/2018 Penicillins Wheezing 11/26/2011 Asthma reaction Medications minoxidiL (LONITEN) 2.5 mg tablet Take 1 [...] Do not crush, chew, or split. Active pantoprazole (PROTONIX) 40 mg EC tablet TAKE 1 TABLET BY MOUTH 2 TIMES DAILY (BEFORE MEALS). TAKE ON EMPTY STOMACH, WAIT 30 MINS AND THEN EAT TO ACTIVATE THE MEDICATION- BEFORE BREAKFAST AND SUPPER. 180 tablet 1 11/30/19 25 Active pantoprazole (PROTONIX) 40 mg EC [...] day if needed for heartburn. 60 each 12/05/19 25 Active ondansetron (ZOFRAN) 4 mg tablet Take 1 tablet (4 mg total) by mouth 3 (three) times a day. 60 tablet 6 12/05/19 25 Active LORazepam (ATIVAN) 0.5 mg tablet Take one tab one hour prior to takeoff, may repeat x one if needed while in flight 4 tablet 01/30/20 25 Active gabapentin (NEURONTIN) 300 mg capsule TAKE 1 CAPSULE BY MOUTH THREE TIMES A DAY STRENGTH: 300 MG 270 capsule 1 03/05/20 25 Active fluticasone HFA (FLOVENT HFA) 220 mcg/actuation inhaler INHALE 2 PUFFS INTO THE LUNGS 2 TIMES DAILY FOR 30 DAYS. 12 each 5 03/20/20 25 Active montelukast (SINGULAIR) 10 mg tablet Take 1 tablet (10 mg total) by mouth at bedtime. 90 tablet 06/15/20 25 Active acetaminophen (TYLENOL 8 HOUR) 650 mg 8 hr tablet Take 1 tablet (650 mg total) by mouth every 8 (eight) hours if needed for moderate pain. for pain 60 tablet 2 06/15/20 25 Active atorvastatin (LIPITOR) 10 mg tablet Take 1 tablet (10 mg total) by mouth 1 (one) time each day. 90 tablet 06/15/20 25 Active cetirizine (ZyrTEC) 10 mg tablet Take 1 tablet (10 mg total) by mouth 1 (one) time each day. 90 tablet 06/15/20 25 Active DULoxetine (CYMBALTA) [address] capsule Take 1 capsule (30 mg total) by mouth 1 (one) time each day. 90 capsule 06/15/20 25 Active fluticasone propionate (FLONASE) 50 mcg/actuation nasal spray Administer 2 sprays into each nostril 1 (one) time each day. 48 mL 06/15/20 25 Active benzonatate (TESSALON) 100 mg capsule Take 1 capsule (100 mg total) by mouth 3 (three) times a day if needed for cough. Do not crush or chew. 42 capsule 06/15/20 25 025 Active atorvastatin (LIPITOR) 10 mg tablet TAKE 1 TABLET BY MOUTH EVERY DAY 90 tablet 11/16/19 25 025 Discontinued(Re order) cetirizine (ZyrTEC) 10 mg tablet Take 1 tablet (10 mg total) by mouth 1 (one) time each day. 90 tablet 04/25/20 25 025 Discontinued(Re order) montelukast (SINGULAIR) 10 mg tablet Take 1 tablet (10 mg total) by mouth at bedtime. 90 tablet 04/25/20 25 025 Discontinued(Re order) DULoxetine (CYMBALTA) [address] capsule Take 1 capsule (30 mg total) by mouth 1 (one) time each day. 90 capsule 04/25/20 25 025 Discontinued(Re order) acetaminophen (TYLENOL 8 HOUR) 650 mg 8 hr tablet Take 1 tablet (650 mg total) by mouth every 8 (eight) hours if needed for moderate pain. for pain 60 tablet 2 04/25/20 25 025 Discontinued(Re order) rosuvastatin (CRESTOR) 5 mg tablet Take 1 tablet (5 mg total) by mouth 1 (one) time each day. 90 each 04/25/20 25 025 Discontinued fluticasone propionate (FLONASE) 50 mcg/actuation nasal spray Administer 2 sprays into each nostril 1 (one) time each day. 48 mL 04/25/20 25 025 Discontinued(Re order) rosuvastatin (CRESTOR) 5 mg tablet TAKE 1 TABLET BY MOUTH 1 TIME EACH DAY. 90 tablet 1 06/05/20 025 Discontinued Active Problems Problem Noted Date Diagnosed Date Fibromyalgia 05/13/2021 Type II diabetes mellitus wi th ophthalmic manifestations ([facility] V24, [facility] V28) 05/13/2021 Lumbar facet arthropathy 04/26/2020 Obstructive sleep apnea 06/06/2018 Overview (10/02/2024): UNTREATED ( for 5 years as of 10/08/22) [facility] Home Polysomnogram: Date 06/01/2018; AHI 7, Unclassified apneas 0; Obstructive apneas 27; Central apneas 6; Mixed apneas 1; hypopneas 23; average oxygen saturation 96% (lowest 83% without saturations <88% for 5% or more of study) [facility] Polysomnogram treatment study. Date 06/16/2018. SE 40 [...] 1.4 cm, not mentioned in CT at [facility] in 2009 Cyst of right kidney 12/18/2014 Overview (10/02/2024): Abd US 2006 [facility] - right kidney cyst 1.[address] 2009 [facility] - right upper kidney cyst 2.1 cm Abd US 2012 - upper pole the right kidney measuring 2.5 x 2.[address] 2014 - upper pole of the right kidney measuring 3.2 x 2.9 x 3.1 cm. Macular degeneration 05/28/2014 Overview (10/02/2024): Dr. Zapata and [facility] Chronic shoulder pain 01/16/2014 Chronic abdominal pain 04/13/2013 Overview (10/02/2024): Mostly epigastric and right upper quadrant. Gallbladder ultrasound 2008, abdominal CT scan 2009, abdominal ultrasound 2005, all at [facility]. Gastric reflux 03/31/2013 Positive FLO (antinuclear antibody) [...] Encounters Date Type Department Care Team Description 06/21/2025 1:05 PM EDT - 06/21/2025 11:59 PM EDT Hospital Encounter Radiology Department - [address] [phone] Encounter for screening mammogram for breast cancer Discharge Disposition: Home or Self Care 06/15/2025 11:30 AM EDT Office Visit Adult Medicine [facility] [address] [place] [phone] Jay Corona MD Diet-controlled diabetes mellitus ([facility] V24, [facility] V28) (Primary Dx); Pure hypercholesterolemia; Memory loss; Encounter for long-term (current) use of medications; Viral upper respiratory tract infection; Acute cough; Enuresis, primary, functional 06/05/2025 Telephone Gastroenterology - [place] [address] [facility] [address] [place] [address] Donaldo Olsen MD 04/09/2025 3:45 PM EDT Treatment [facility] Speech Therapy [address] [place] [address] Gracie Betancourt, VERIFICATION SPECIALIST Cognitive communication disorder (Primary Dx); Memory loss from Last 3 Months Immunizations Name Administration [...] right hand UPPER GASTROINTESTINAL ENDOSCOPY 2012 PROCEDURE: [facility] UPPER GI ENDOSCOPY PERFORMED; COMMENT: Visually normal on PPI rx; duodenal bx: normal. COLONOSCOPY 01/10/2010 PROCEDURE: HISTORICAL COLONOSCOPY; COMMENT: Jeffrey; [facility]; no polyps. COLONOSCOPY 12/28/2008 PROCEDURE: HISTORICAL COLONOSCOPY; COMMENT: Jeffrey; [facility]; 1.2 cm sessile polyp right colon; snared but lost. COLONOSCOPY 05/09/2015 PROCEDURE: HISTORICAL COLONOSCOPY; COMMENT: Jeffrey@[facility]; no polyps. SHOULDER SURGERY 2011 PROCEDURE: HISTORICAL SHOULDER SURGERY COLONOSCOPY 07/14/2019 PROCEDURE: HISTORICAL COLONOSCOPY; COMMENT: no polyps. Consider colonoscopy again in 7 years. ESOPHAGOGASTRODUODENOSCOPY 07/14/2021 PROCEDURE: [facility] EGD TRANSORAL BIOPSY SINGLE/MULTIPLE; COMMENT: bilious fluid [...] scan 2009, abdominal ultrasound 2005, all at [facility]. Prediabetes DX:Prediabetes Osteopenia DX:Osteopenia Hyperlipidemia DX:Hyperlipidemi a MAYRA (obstructive sleep apnea) DX :MAYRA (obstructive sleep apnea) Renal cyst DX:Renal cyst [...] Relation Name Comments Other: sudden Brother 1 ?[place] No Known Problems Brother 2 No Known Problems Brother 3 Other: cancer ?type Father ?liver Asthma Mother No Known Problems Sister 1 Alcohol/Drug Sister 2 lives in [place] Breast cancer Neg Hx Colon cancer Neg [...] = 0.6 oz pur e alcohol) Comments No Sex and Gender Information Value Date Recorded Sex Assigned at Female 09/18/2024 2:23 PM EST Legal Sex Female 6:18 PM EST Gender Identity Female 09/18/2024 2:23 PM EST Sexual Orientation Straight 09/18/2024 2: 23 PM EST Obstetrics History Para Term AB IAB SAB Ectopic Multiple Livin g Live Births 6 6 6 6 Date Outcome GA Total Labor Labor/2nd/3rd Weight Sex Type Anes PTL Phuong A1 A5 Name Clin Term Term Term Term Term Term Last Filed Vital Signs Vital Sign Reading Time Taken Comments Blood Pressure 120/61 06/15/2025 11:35 AM EDT Pulse 60 06/15/2025 11:35 AM EDT Temperature 36.1 C (97 F) 06/15/2025 11:35 AM EDT Respiratory Rate 14 06/15/2025 11:35 AM EDT Oxygen Saturation 97% 12/29/2024 3:02 PM EST Inhaled Oxygen Concentration - - Weight 54 kg (119 lb) 06/15/2025 11:35 AM EDT Height 144.8 cm (4' 9 ) 06/15/2025 11:35 AM EDT Body Mass Index 25.75 06/15/2025 11:35 AM EDT Plan of Treatment Upcoming Encounters Date Type Department Care Team (Late st Contact Info) Description 07/11/2025 1:30 PM EDT Appointment Radiology Department - [address] [phone] 07/11/2025 1:45 PM EDT Appointment Radiology Department - [address] [phone] 07/17/2025 10:45 AM EDT Office Visit Pulmonolgy - [address] [place] [address] Meri Meek MD [address] [place] [address] 07/25/2025 10:50 AM EDT Office Visit Gastroenterology - [place] [facility] 175 [facility] [address] [place] [phone] Ssuan Wray PA [address] [place] [address] 01/04/2026 11:30 AM EST Office Visit Adult Medicine [facility] [address] [place], [place] [phone] Jay Corona MD [address] [place], [place] Health Maintenance Due Date Last Done Comments [...] - PCV20 or PCV21) 08/26/2021 08/26/2016, 01/16/2014 Falls Risk Assessment 10/10/2022 Social Influencers of Health Screening 10/10/2022 DTaP,Tdap,and Td Vaccines (2 - Td or Tdap) 01/16/2023 01/16/2013 COVID-19 Vaccine ( season) 2024 10/02/2021, 03/05/2021, 02/05/2021 Depression Screening 11/01/2024 Colorectal Cancer Screening: Stool Based Tests (FOBT/FIT) 05/12/2025 05/12/2024 Influenza Vaccine (#1) 2025 4, 10/08/2022, 12/19/2021, Additional history exists Medicare Annual Wellness Visit 12/04/2025 12/04/2024 Diabetes: Blood Sugar Control Test (HGBA1C) 12/16/2025 06/15/2025, 12/04/2024, 05/16/2024, Additional history exists Diabetes: Annual Urine Albumin-Creatinine Ratio (uACR) 06/15/2026 06/15/2025, 12/04/2024, 05/16/2024 Diabetes: Annual GFR (Glomerular Filtration Rate) 06/15/2026 06/15/2025, 12/04/2024, 05/16/2024, Additional history exists Breast Cancer Screening 06/21/2027 06/21/20 25, 06/15/2024, 06/15/2024, Additional history exists Cholesterol Screening (Lipid Panel) 06/15/2030 06/15/2025, 12/04/2024, 05/16/2024, Additional history exists Osteoporosis Screening (Bone Density Screening) 09/19/2034 09/19/2024, 01/19/2022, 12/04/2019, Additional history exists Hepatitis C Screening Completed 11/23/2023 HIB Vaccines Aged Out No longer eligi [...] on patient's age to complete this topic Goals Goal Patient Goal Type Associated Problems Recent Progress Patient-Stated? Author VERIFICATION SPECIALIST LTG General No Gracie Betancourt, VERIFICATION SPECIALIST Note: Pt will improve cognitive linguistic function to participate and communicate in basic ADLs mod I VERIFICATION SPECIALIST STGs General No Gracie Betancourt, VERIFICATION SPECIALIST Note: Pt will participate in ongoing training of internal/external memory strategies and ID pertinent techniques to use in daily life independently Pt will participate with development of personalized HEP to perform 4-5xs/wk with min assist for modifications Pt will complete auditory and visual working memory/mental flexibility tasks of 2-3 components with min cues to be 80%ac Pt will complete verbal and written concrete convergent and divergent organization tasks with min cues Procedures Procedure Name Priority Date/Time Associated Diagnosis Comments MG MAMMO DIGITAL SCREENING W SHAN BILAT Routine 06/21/2025 1:39 PM EDT Encounter for screening mammogram for breast cancer HEMOGLOBIN A1C Routine 06/15/2025 12:23 PM EDT Diet-controlled diabetes mellitus ([facility]/HCC V24, [facility]/HCC V28) LIPID PANEL WITH REFLEX TO DIRECT LDL Routine 06/15/2025 12:23 PM EDT Pure hypercholesterolemia COMPREHENSIVE METABOLIC PANEL Routine 06/15/2025 12:23 PM EDT Diet-controlled diabetes mellitus ([facility]/HCC V24, CMS/HCC V28) Encounter for long-term (current) use of medications MICROALBUMIN CREATININE URINE RATIO Routine 06/15/2025 12:23 PM EDT Diet-controlled diabetes mellitus ([facility]/HCC V24, CMS/HCC V28) BD BONE DENSITY DXA AXIAL SKELETON Routine 09/19/2024 10:37 AM EST Age-related osteoporosis without current pathological fracture HM STOOL BASED TEST Routine 05/12/2024 HEPATITIS C SCREENING Routine 11/23/2023 from Last 3 Months or Most Recently Relevant to Health Maintenance Results * (ABNORMAL) MG Mammo Digital Screening w Shan bilat (06/21/2025 1:39 PM EDT) Anatomical Region Laterality Modality Breast Bilateral Mammography 06/25/2025 12:2 8 PM EDT Impressions 06/25/2025 12:36 PM EDT 1. Left: No mammographic evidence of malignancy 2. Right: Indeterminate upper outer posterior depth focal asymmetry 3. Scattered fibroglandular tissue BI-RADS CATEGORY: 0 - INCOMPLETE - NEED ADDITIONAL IMAGING EVALUATION RECOMMENDATION: Additional right breast imaging recommended. Right breast CC and MLO spot compression, full-field ML, targeted ultrasound Mammo Location: [facility], [address] [place] [address], [phone], . -------- FINAL REPORT -------- Dictated By: Jarad Gallegos Dictated Date: 06/25/2025 12:28 ET Assigned Physician: Jarad Gallegos Reviewed and Electronically Signed By: Jarad Gallegos Signed Date: 06/25/2025 12:36 ET Workstation ID: [id number] Transcribed By: Self Edit Transcribed Date: 06/25/2025 12:28 ET Narrative 06/25/2025 12:36 PM EDT A BILATERAL DIGITAL 3D SCREENING MAMMOGRAPHY HISTORY: Routine screening. No family history of breast cancer. COMPARISON: Multiple priors dating back to 06/04/2021 Technique: Bilateral full field digital mammography (3D) was performed using standard CC and MLO projections CAD was used to evaluate this mammogram. FINDINGS: Right: Indeterminate upper outer posterior depth focal asymmetry Left: No suspicious masses, groups of microcalcification or areas of architectural distortion identified. Stable typically benign parenchymal asymmetries. BREAST DENSITY: B - There are scattered areas of fibroglandular density. Procedure Note Jarad Gallegos MD - 06/25/2025 A BILATERAL DIGITAL 3D SCREENING MAMMOGRAPHY HISTORY: Routine screening. No family history of breast cancer. COMPARISON: Multiple priors dating back to 06/04/2021 Technique: Bilateral full field digital mammography (3D) was performedusing standard CC and MLO projections CAD was used to evaluate this mammogram. FINDINGS: Right: Indeterminate upper outer posterior depth focal asymmetry Left: No suspicious masses, groups of microcalcification or areas ofarchitectural distortion identified. Stable typically benign parenchymalasymmetries. BREAST DENSITY: B - There are scattered areas of fibroglandular density. IMPRESSION: 1. Left: No mammographic evidence of malignancy 2. Right: Indeterminate upper outer posterior depth focal asymmetry 3. Scattered fibroglandular tissue BI-RADS CATEGORY: 0 - INCOMPLETE - NEED ADDITIONAL IMAGING EVALUATION RECOMMENDATION: Additional right breast imaging recommended. Right breast CC and MLO spotcompression, full-field ML, targeted ultrasound Mammo Location: [facility], [address] [place] [address], [phone], . -------- FINAL REPORT -------- Dictated By: Jarad Gallegos Dictated Date: 06/25/2025 12:28 ET Assigned Physician: Jarad Gallegos Reviewed and Electronically Signed By: Jarad Gallegos Signed Date: 06/25/2025 12:36 ET Workstation ID: [id number] Transcribed By: Self Edit Transcribed Date: 06/25/2025 12:28 ET us Jay Corona MD IMG BI PROCEDURES Final Result * (ABNORMAL) Lipid panel with reflex to direct LDL (06/15/2025 12:23 PM EDT) Cholesterol 287(H) 0 - 200 mg/dL LAB CHEMISTRY METHOD 06/15/2025 5:29 PM [facility] Triglycerides 221(H) 0 - 150 mg/dL LAB CHEMISTRY METHOD 06/15/2025 5:29 PM [facility] HDL 40 >=40 mg/dL LAB CHEMISTRY METHOD 06/15/2025 5:29 PM [facility] LDL Calculated 203(H) 0 - 100 mg/dL LAB CHEMISTRY METHOD 06/15/2025 5:29 PM [facility] Comment:Estimated LDL Calcul ated using equation: Total cholesterol - HDL cholesterol - (Triglycerides/5) VLDL Cholesterol Cabrera 44.2 mg/dL LAB CHEMISTRY METHOD 06/15/2025 5:29 PM [facility] Non HDL Chol. (LDL+VLDL) 247(H) <145 mg/dL LAB CHEMISTRY METHOD 06/15/2025 5:29 PM [facility] Chol/HDL Ratio 7.2(H) 0.0 - 4.4 LAB CHEMISTRY METHOD 06/15/2025 5:29 PM [facility] Blood Venous blood specimen / Unknown Venipuncture / Unknown 06/15/2025 12:23 PM EDT 06/15/2025 12:23 PM EDT us Jay Corona MD LAB BLOOD ORDERABLES Final Resu lt Performing Organization Address [facility]/ZIP Co de Phone Number [facility] [address] [place] [address], [place] [phone] * (ABNORMAL) Microalbumin creatinine urine ratio (06/15/2025 12:23 PM EDT) Creatinine, Urine 323.0 mg/dL LAB CHEMISTRY METHOD 06/15/2025 3:36 PM EDT [facility] Comment:Results verified by repeat testing Microalb, Ur 50.5(H) 0.0 - 29.0 mg/L LAB CHEMISTRY METHOD 06/15/2025 3:36 PM EDT [facility] Microalb/Crea t Ratio 16 <30 mg/g creat LAB CHEMISTRY METHOD 06/15/2025 3:36 PM EDT [facility] Urine Urine specimen obtained by clean catch procedure / Unknown Non-blood Collection / Unknown 06/15/2025 12:23 PM EDT 06/15/2025 12:23 PM EDT us Jay Corona MD LAB URINE ORDERABLES Final Resu lt Performing Organization Address City/[facility]/ZIP Co de Phone Number [facility] [address] [place] [address], [place] [phone] * Hemoglobin A1c (06/15/2025 12:23 PM EDT) Hemoglobin A1C 6.3 <6.5 % LAB CHEMISTRY METHOD 06/15/2025 2:51 PM EDT [facility] Mean Bld Glu Estim. 134 mg/dL LAB CHEMISTRY METHOD 06/15/2025 2:51 PM EDT [facility] Blood Venous blood specimen / Unknown Venipuncture / Unknown 06/15/2025 12:23 PM EDT 06/15/2025 12:23 PM EDT us Jay Corona MD LAB BLOOD ORDERABLES Final Resu lt [facility] [address] [place] [address], * Comprehensive metabolic panel (06/15/2025 12:23 PM EDT) Sodium 138 133 - 145 mmol/L LAB CHEMISTRY METHOD 06/15/2025 5:29 PM [facility] Potassium 4.4 3.5 - 5.5 mmol/L LAB CHEMISTRY METHOD 06/15/2025 5:29 PM [facility] Chloride 105 96 - 110 mmol/L LAB CHEMISTRY METHOD 06/15/2025 5:29 PM [facility] CO2 29 21 - 32 mmol/L LAB CHEMISTRY METHOD 06/15/2025 5:29 PM [facility] Anion Gap 4 3 - 11 LAB CHEMISTRY METHOD 06/15/2025 5:29 PM [facility] Glucose 94 70 - 100 mg/dL LAB CHEMISTRY METHOD 06/15/2025 5:29 PM [facility] BUN 12 5 - 25 mg/dL LAB CHEMISTRY METHOD 06/15/2025 5:29 PM [facility] Creatinine 0.77 0.50 - 1.10 mg/dL LAB CHEMISTRY METHOD 06/15/2025 5:29 PM [facility] eGFR 81 >=60 mL/min/1. 73m2 LAB CHEMISTRY METHOD 06/15/2025 5:29 PM [facility] Comment:Calculation based on the Chronic Kidney Disease Epidemiology Collaboration (CKD-EPI) equation refit without adjustment for race. BUN/Creatinine Ratio 15.6 LAB CHEMISTRY METHOD 06/15/2025 5:29 PM EDT [facility] Calcium 9.5 8.5 - 10.5 mg/dL LAB CHEMISTRY METHOD 06/15[facility]25 5:[facility] AST (SGOT) 22 10 - 42 unit/L LAB CHEMISTRY METHOD 06/15/2025 5:29 PM [facility] ALT (SGPT) 15 10 - 60 unit/L LAB CHEMISTRY METHOD 06/15/2025 5:29 PM EDT [facility] Alkaline Phosphatase 114 42 - 121 unit/L LAB CHEMISTRY METHOD 06/15/2025 5:29 PM T [facility] Total Protein 7.6 6.0 - 8.0 g/dL LAB CHEMISTRY METHOD 06/15/2025 5:29 PM [facility] Albumin 3.9 3.2 - 5.0 g/dL LAB CHEMISTRY METHOD 06/15/2025 5:29 PM T [facility] Total Bilirubin 0.3 0.0 - 1.4 mg/dL LAB CHEMISTRY METHOD 06/15/2025 5:29 PM T [facility] Blood Venous blood specimen / Unknown Venipuncture / Unknown 06/15/2025 12:23 PM EDT 06/15/2025 12:23 PM EDT us Jay Corona MD LAB BLOOD ORDERABLES Final Resu lt [facility] [address] [place] [address], * BD Bone Density DXA Axial Skeleton (09/19/2024 10:37 AM EST) Anatomical Region Laterality Modality Wrist, Hip, L-spine Bone Densito metry 09/19/2024 3:06 PM EST Impressions 09/19/2024 3:08 PM EST Osteopenia by WHO criteria. This patient has a 6.3% risk of major osteoporotic fracture and a 1.1% risk of hip fracture over the next 10 years. (World Health Organization Fracture Risk Assessment) [facility] Department of Internal Medicine recommends using National [...] alternative screening schedule based on silverio Parikh., [facility] November 19, 2011 for patients with osteopenia (based on hip BMD T-score) is as follows: * advanced osteopenia (T scores [...] Signed Date: 09/19/2024 15:08 ET Workstation ID: [id number] Transcribed By: Self Edit Transcribed Date: 09/19/2024 [...] Comparison exam(s): 01/19/2022. No statistically significant change in bone mineral density. [...] (World Health Organization Fracture Risk Assessment) [facility] Department of Internal Medicine recommendsusing National Osteoporosis [...] FRAX. Optional alternative screening schedule based on geraldo Parikh al., NEJMJanuary 2011 for patients with osteopenia (based on [...] Signed Date: 09/19/2024 15:08 ET Workstation ID: [id number] Transcribed By: Self Edit Transcribed Date: 09/19/2024 15:06 ET Lorna SCOTT IMG DXA PROCEDURES Final Result * Stool Based Tests (FOBT/FIT) (05/12/2024) [facility] Colorectal Cancer Screening: Stool Based Tests Abstracted, Negative Historical Provider HEALTH MAINTENANCE Final Result * Hepatitis C Screening (11/23/2023) [facility] Hepatitis C Screening Abstracted Historical Provider HEALTH MAINTENANCE Final Result from Last 3 Months or Most Recently Relevant to Health Maintenance Insurance [facility]IC[facility] Member Subscriber Plan / Payer (Ef fective 2016-Present) Name:Fartun Mays Relation to Subscriber:Self Name:Farutn Mays Payer ID:[id number] Group ID:[id number] Type:Not on file Address: [place] [address] [place] [place] [phone] Advance Directives * Full Code - Confirmed (Latest Code Status on File) Date Activated Date Inactivated Comments 12/04/2024 11:35 AM This code stat us was ascertained in the following way: Code status discussion: discussion with patient To update the patient's code status, place a code status order. Do not modify or discontinue any currently active code status orders. Care Teams Bulb Grader Relationship Specialty Start Date End Date Jay Corona MD [address] [place] [phone] PCP - General Internal Medicine 09/19/24
--- OUTSIDE RECORDS SUMMARY | 2025-07-04 15:19 | XMS_ITS | Clinical Summary ---
Author Organization [facility] Address [address] [place] [address] Care Team Providers Care Design Leader Name Role Phone Sapna Svitlana Rodriguez DO [...] 66 04/27/2023 10:39 AM EDT Temperature 36.4 C (97.6 F) 04/27/2023 10:39 AM EDT Respiratory Rate 18 04/27/2023 10:39 AM EDT [...] or Tdap) 01/16/2023 01/16/2013 Influenza Vaccine (#1) 2025 2, 12/19/2021, 11/15/2020, Additional history exists RSV Adult > 60+ Yrs or (1 - 1-dose 75+ series) 2026 Hepatitis B Vaccines Aged Out No long er eligible based on patient's age to complete this topic RSV Ped < 20 months Aged Out No longe r eligible based on patient's age to complete this topic Care Teams Design Leader Relationship Specialty Start Date End Date Svitlana Garcia DO PCP - General Buffer Chrome 06/21/19
--- OUTSIDE RECORDS SUMMARY | 2025-07-04 15:19 | XMS_ITS | Encounter Summary ---
Author Organization [facility] Address [address] [place] [address] Care Team Providers Care Washroom Attendant Name Role Phone Jay Corona MD Primary Care Provider [phone] Encounter Details Date Type Department Care Team ([facility] st Contact Info) Description 06/05/2025 Telephone Gastroenterology - [address] [place] [phone] Donaldo Olsen MD [address] [place] [phone] Social History Tobacco Use Types Packs/Day Years Used Date Smoking Tobacco: Never Smokeless Tobacco: Never Alcohol Use Standard Drinks/Week Comments No 0 (1 standard drink = 0.6 oz pur e alcohol) Comments Unknown Sex and Gender Information Value Date Recorded Sex Assigned at Female 09/18/2024 2:23 PM EST Legal Sex Female 6:18 PM EST Gender Identity Female 09/18/2024 2:23 PM EST Sexual Orientation Straight 09/18/2024 2: 23 PM EST documented as of this encounter Progress Notes * Suzi Naayk - 06/05/2025 11:32 AM EDT Received refill request fom patient's pharmcay for: sucralfate (CARAFATE) 1 gram tablet (Discontinued) (Not on current med list) Previous [facility] patient Called patient & LM to schedule appt with new provider documented in this encounter Plan of Treatment Upcoming Encounters Date Type Department Care Team (Late st Contact Info) Description 07/11/2025 1:30 PM EDT Appointment Radiology Department - [address] [phone] 07/11/2025 1:45 PM EDT Appointment Radiology Department - [address] [phone] 07/17/2025 10:45 AM EDT Office Visit Pulmonolgy - [address] [phone] Meri Meek MD [address] [place] [address] 07/25/2025 10:50 AM EDT Office Visit Gastroenterology - [address] [phone] Susan Wray PA [address] [place] [address] 01/04/2026 11:30 AM EST Office Visit Adult Medicine [address] [phone] Jay Corona MD [address] [place] [address] documented as of this encounter Goals Goal Patient Goal Type Associated Problems Recent Progress Patient-Stated? Author NURSING STAFF DEVELOPMENT COORDINATOR [facility] General No Gracie Betancourt, NURSING STAFF DEVELOPMENT COORDINATOR Note: Pt will improve cognitive linguistic function to participate and communicate in basic ADLs mod I NURSING STAFF DEVELOPMENT COORDINATOR STGs General No Gracie Betancourt, NURSING STAFF DEVELOPMENT COORDINATOR Note: Pt will participate in ongoing training [...] and divergent organization tasks with min cues documented as of this encounter Visit Diagnoses Not on filedocumented in this encounter Care Teams Washroom Attendant Relationship Specialty Start Date End Date Jay Corona MD [address] [place] [phone] PCP - General Internal Medicine 09/19/24 documented as of this encounter
== END 2025-07-04 13:27 | disposition home or self-care (01) ==
LOC: HO.RHES 12:57
PROVIDERS: PCP Internal Medicine; Visit Provider Student in an Organized Health Care Education/Training Program
DX: M79.7 Fibromyalgia (principal)
CPT/HCPCS: 99213

== ENCOUNTER → 2025-07-04 12:56 | Outpatient (BNVA) | payer OTHER, SELFPAY | PROVIDERS: PCP Internal Medicine; Visit Provider Student in an Organized Health Care Education/Training Program | DX: M79.7 Fibromyalgia (principal) | CPT/HCPCS: 99212 ==